=== PATIENT | male | born 1955 | race Caucasian/White ===

== ENCOUNTER 2018-12-25 07:43 | Emergency (ER) | payer BC ==
[2018-12-25] MEDS ORDERED: Morphine 4 MG/ML Syringe IM ONE (08:09)
[2018-12-25] MEDS ORDERED: Ketorolac 60 MG/2 ML SDV IM ONE (08:09)
[2018-12-25] MEDS ORDERED: Morphine 4 MG/ML Syringe IM STA (08:14)
--- NOTE | 2018-12-25 08:18 | EDM.PDOC ---
ED HPI GENERAL MEDICAL PROBLEM - General Chief Complaint: General Stated Complaint: FELL, RIB PAIN Time Seen by Provider: 12/25/18 07:43 Source of Information: Reports: Patient, EMS, Family History Limitations: Reports: Physical Impairment (left rib pain) - History of Present Illness INITIAL COMMENTS - FREE TEXT/NARRATIVE: 63 y.o.w.m with a H/O TYP DM and HTN came by EMS to the ED by EMS after he fell down the stairs because his legs "gave out" notices severe pain at his lower back and left chest wall. He does not take ASA does not take Coumadin. 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 No N/V/D. No dizziness, no SOB. He has left lat chest and low back pain. He has chronic microcytic Hematuria for more the 16 years. No other acute med issues. BP 179/102 RR 24 Pulse ox 98% on RA Pulse 68 Temp 36.8 Onset Date: 12/25/18 Onset Time: 06:30 Duration: Minutes:, Hour(s):, Intermittent, Waxing/Waning Location: Reports: Back Quality: Reports: Burning, Dull Severity: Moderate Improves with: Reports: Rest Worsens with: Reports: Movement Context: Reports: Trauma (fal down the stairs) Left back Pain Score (Numeric/FACES): 9 - Related Data Allergies Allergy/AdvReac Type Severity Reaction Status Date / Time Sulfa (Sulfonamide Allergy Unknown UNKNOWN Verified 12/25/18 07:54 Antibiotics) Home Meds: Home Meds Acetaminophen [Tylenol] 325 mg PO ASDIRECTED PRN 04/15/15 [History] Gluc Johnson/Chondro Johnson A/Vit C/Mn [Glucosamine 1,500 Complex Cp] 1 tab PO DAILY [History] Naproxen Sodium [Aleve] 220 mg PO ASDIRECTED PRN 04/15/15 [History] carBAMazepine [Carbamazepine ER] 400 mg PO DAILY 04/15/15 [History] Lisinopril/Hydrochlorothiazide [Lisinopril-Hctz 20-12.5 mg Tab] 2 each PO DAILY 12/25/18 [History] atorvaSTATin Calcium [Atorvastatin Calcium] 10 mg PO DAILY 12/25/18 [History] metFORMIN HCl [Metformin HCl] 500 mg PO DAILY 12/25/18 [History] Past Medical History Cardiovascular History: Reports: High Cholesterol, Hypertension Other Genitourinary History: URGENCY W/VOIDING Endocrine/Metabolic History: Reports: Diabetes, Type II, Obesity/BMI 30+ - Past Surgical History Other GI Surgeries/Procedures: HX COLON POLYPS Social & Family History - Family History Family Medical History: Noncontributory - Tobacco Use Smoking Status *Q: Former Smoker Used Tobacco, but Quit: Yes Month/Year Tobacco Last Used: 1978 - Caffeine Use Caffeine Use: Reports: Coffee - Recreational Drug Use Recreational Drug Use: No ED ROS GENERAL - Review of Systems Review Of Systems: See Below Constitutional: Reports: No Symptoms HEENT: Reports: No Symptoms Respiratory: Reports: No Symptoms Cardiovascular: Reports: No Symptoms Endocrine: Reports: No Symptoms GI/Abdominal: Reports: No Symptoms : Reports: Hematuria (chronic) Musculoskeletal: Reports: Back Pain, Muscle Pain Skin: Reports: Wound (abrasion left back) Neurological: Reports: No Symptoms Psychiatric: Reports: No Symptoms Hematologic/Lymphatic: Reports: No Symptoms Immunologic: Reports: No Symptoms ED EXAM, GENERAL - Physical Exam Exam: See Below Exam Limited By: Other (back pain) General Appearance: Alert, WD/WN, Mild Distress, Moderate Distress, Obese Eye Exam: Bilateral Eye: Normal Inspection Ears: Normal External Exam Ear Exam: Bilateral Ear: Auricle Normal Nose: Normal Inspection, Normal Mucosa Throat/Mouth: Normal Inspection, Normal Lips, Normal Voice, No Airway Compromise Head: Atraumatic, Normocephalic Neck: Normal Inspection, Supple, Non-Tender Respiratory/Chest: No Respiratory Distress, Lungs Clear, Normal Breath Sounds, Decreased Breath Sounds (due to trauma to chest ) Cardiovascular: Normal Peripheral Pulses, Regular Rate, Rhythm Peripheral Pulses: 1+: Brachial (R) GI/Abdominal: Normal Bowel Sounds, Soft, Non-Tender, No Organomegaly, No Abnormal Bruit, No Mass, Pelvis Stable (Male) Exam: Deferred Rectal (Males) Exam: Other (no stool incontinence) Back Exam: Normal Inspection, Full Range of Motion Extremities: Normal Inspection, Normal Range of Motion, Non-Tender, No Pedal Edema, Normal Capillary Refill Neurological: Alert, Oriented, CN II-XII Intact, Normal Cognition, Abnormal Gait (becasue of back and rib pain) Psychiatric: Normal Affect, Normal Mood Skin Exam: Warm, Dry, Normal Color, No Rash, Rash (abrasion left post chest) Lymphatic: No Adenopathy Course - Vital Signs Text/Narrative:: 63 y.o.w.m with a H/O TYP DM and HTN came by EMS to the ED by EMS after he fell down the stairs because his legs "gave out" notices severe pain at his lower back and left chest wall. He does not take ASA does not take Coumadin. 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 No N/V/D. No dizziness, no SOB. He has left lat chest and low back pain. He has chronic microcytic Hematuria for more the 16 years. TD UTD. No other acute med issues. 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 Possible evolving compression Fx lower T spine. Please se reports Labs: Accu check 229 Impression: Fall down the stairs, Back pain, Fxs T10, L1 and Rib 11 and 12, chronic hematuria (> 10 years) Tx: Ice, Toradol, Morphine, Percocet 12.00 pm Consultation: Dr. Harkins, Ortho: No aswer per phone 12.05 pm Physical Tx: To aske for TLSO Brace: No answer 12.10 pm Consultation: Dr. Guzmán, Neurosurgeon, [facility]: T spine Fx's are stable, apply a TLSO Brace and F/U in clinic. Since a TLS Brace not available at [place], Dr. Guzmán recommended to sent pt to the ED and be evaluated by a Trauma/Neurosurgeon. 12.45 pm Consultation: Dr. Dempsey, [facility]: Accepted the patient for admission an and further care, Private vehicle with is OK Reevaluation: Pt was ambulating to the bathroom well. Plan: ER to ER transfer, Pt wants to go by EMS, refused EMS Last Recorded V/S: Last Vital Signs Temp 36.4 C 12/25/18 13:00 Pulse 65 12/25/18 13:00 Resp 20 12/25/18 13:00 BP 156/91 H 12/25/18 13:00 Pulse Ox 100 12/25/18 13:00 - Orders/Labs/Meds Orders: Active Orders 24 hr Category Date Time Status Chest wo Cont [CT] Stat Exams 12/25/18 08:11 Taken Thoracic Spine Comp wo Cont [MR] Stat Exams 12/25/18 10:09 Taken Meds: Medications Discontinued Medications Generic Name Dose Route Start Last Admin Trade Name Bo PRN Reason Stop Dose Admin Ketorolac Tromethamine 60 mg 12/25/18 08:09 12/25/18 08:15 Toradol IM 12/25/18 08:10 60 mg ONETIME ONE Administration Morphine Sulfate 4 mg 12/25/18 08:30 12/25/18 08:23 Morphine IM 12/25/18 08:31 4 mg ONETIME ONE Administration Oxycodone/Acetaminophen 1 tab 12/25/18 09:46 12/25/18 10:09 Percocet 325-5 Mg PO 12/25/18 09:47 1 tab ONETIME ONE Administration Departure - Departure Time of Disposition: 13:11 Disposition: DC/Tfer to Acute Hospital 02 Condition: Fair Clinical Impression: Traumatic fracture of spine at T12-L1 level, Abrasion Spinal fracture of T10 vertebra Qualifiers: Encounter type: initial encounter Fracture type: closed Fracture morphology: other fracture Qualified Code(s): S22.078A - Other fracture of T9-T10 vertebra, initial encounter for closed fracture Ribs, multiple fractures Qualifiers: Encounter type: initial encounter Fracture type: closed Laterality: left Qualified Code(s): S22.42XA - Multiple fractures of ribs, left side, initial encounter for closed fracture - Discharge Information Instructions: Rib Fracture, [id number] Referrals: Milton Braga MD [Primary Care Provider] - Forms: ED Department Discharge Additional Instructions: Please follow up right away at the new ED at [facility]. Ice to lower back - My Orders Last 24 Hours: My Active Orders 12/25/18 08:11 Chest wo Cont [CT] Stat 12/25/18 10:09 Thoracic Spine Comp wo Cont [MR] Stat - Assessment/Plan Last 24 Hours: My Active Orders 12/25/18 08:11 Chest wo Cont [CT] Stat 12/25/18 10:09 Thoracic Spine Comp wo Cont [MR] Stat
[2018-12-25] MEDS ORDERED: Acetaminophen/oxyCODONE 325-5 MG Tab PO ONE (09:46)
[2018-12-25 13:29] VITALS: BP 156/91
== END 2018-12-25 13:25 ==
LOC: FB.ED 07:43
DX: S22.42XA Multiple fractures of ribs, left side, initial encounter for closed fracture (principal); S22.078A Other fracture of T9-T10 vertebra, initial encounter for closed fracture; S22.089A Unspecified fracture of T11-T12 vertebra, initial encounter for closed fracture; S32.019A Unspecified fracture of first lumbar vertebra, initial encounter for closed fracture; I10 Essential (primary) hypertension; Z79.899 Other long term (current) drug therapy; E78.00 Pure hypercholesterolemia, unspecified; Z87.891 Personal history of nicotine dependence; W10.9XXA Fall (on) (from) unspecified stairs and steps, initial encounter; Z88.2 Allergy status to sulfonamides
CPT/HCPCS: 71250; 72146; 99285; A9270; J1885; J2270

== ENCOUNTER 2020-10-17 08:54 | Day surgery (SDC) | payer BC ==
[~2020-10-17 08:54] MED LIST: Lactated Ringers 1,000 ML IV SCH; Sodium Chloride 0.9% 10 ML Syringe FLUSH PRN
[2020-10-17] MEDS ORDERED: Propofol 200 MG/20 ML SDV IV ONE (08:55)
[2020-10-17] MEDS ORDERED: Lidocaine 2% 5 ML SDV INJECT ONE (08:55)
[2020-10-17] MEDS ORDERED: Lactated Ringers 1,000 ML IV SCH (09:00)
[2020-10-17] MEDS ORDERED: Sodium Chloride 0.9% 10 ML Syringe FLUSH PRN (09:00)
--- NOTE | 2020-10-17 10:57 | PCM.OPNOTE ---
- General Post-Op/Procedure Note Date of Surgery/Procedure: 10/17/20 Operative Procedure(s): c scope with hot loop snare and cold forceps biopsy Findings: ascending colon polyp x6 descending colon polyp rectal polyp Pre Op Diagnosis: personal hx of colon polyps Post-Op Diagnosis: ascending colon polyp x6. descending colon polyp. rectal polyp Anesthesia Technique: MAC Primary Surgeon: Conner Carrillo Anesthesia Provider: Milton Allen Pathology: ascending colon polyp x6 descending colon polyp rectal polyp Complications: None Condition: Good Free Text/Narrative:: see dictation [id number]
[2020-10-17 11:23] VITALS: BP 144/90; PULSE 74
--- NOTE | 2020-10-17 13:27 | OR ---
DATE OF OPERATION: 10/17/2020 SURGEON: Conner Carrillo MD PROCEDURE PERFORMED: Colonoscopy with cold forceps and hot loop snare biopsy. PREOPERATIVE DIAGNOSIS: Personal history of colon polyps. POSTOPERATIVE DIAGNOSIS: Ascending colon polyps x6, descending colon polyp x1, and rectal polyp x1. INDICATIONS FOR PROCEDURE: This is a 65-year-old white male who presents for followup colonoscopy, last one was 5 years ago. It was recommended that he follow up at the 5-year point. He is asymptomatic. He was offered and accepted colonoscopy. DESCRIPTION OF PROCEDURE: After an excellent IV sedation was administered by Anesthesia, digital rectal exam was performed. No marked abnormality was noted. The flexible colonoscope was inserted and advanced without difficulty to the cecum. The cecum was identified by the usual anatomic markers. The prep was marginal. There was a fair amount of particulate matter, especially what appeared to be kernel corn. We were able to irrigate the majority of it, but the scope was clogged on several occasions during this process on withdrawing the scope; therefore, smaller polyps may have been missed. The following findings are noted, however. Ascending colon, a total of 6 polyps; 2 located in the cecum and 4 others along the entire length of the ascending colon. These were 5 mm and less in size. These were not amenable to hot loop snare biopsy, and therefore, were biopsied with the cold forceps and submitted in one container. Transverse colon was unremarkable except for the areas of liquid stool that were irrigated to the best of our ability. Descending colon, a pedunculated polyp, biopsied with hot loop snare and retrieved, submitted in one container. Sigmoid was unremarkable. This had a largest collection of liquid stool along with the rectum. This was irrigated to the best of our ability as was the rectum, and in the rectum, an additional pedunculated polyp was encountered, which was biopsied with hot loop snare and retrieved. All the polyps appeared to be adenomatous in nature, and after this is treated, the patient will obviously require repeat colonoscopy in one year. My recommendations would be that he undergo a repeat colonoscopy regardless of the pathology results due to the quality of his bowel prep, but this will go around. Results will be sent to the patient via letter. /[id number] /[id number]
== END 2020-10-17 11:28 | disposition home or self-care (01) ==
LOC: FB.SDS 08:54
PROVIDERS: ATTEND Surgery
DX: Z12.11 Encounter for screening for malignant neoplasm of colon (principal); D12.2 Benign neoplasm of ascending colon; D12.4 Benign neoplasm of descending colon; D12.8 Benign neoplasm of rectum; K62.89 Other specified diseases of anus and rectum; I10 Essential (primary) hypertension; E11.9 Type 2 diabetes mellitus without complications; Z79.84 Long term (current) use of oral hypoglycemic drugs; Z90.49 Acquired absence of other specified parts of digestive tract; Z79.899 Other long term (current) drug therapy; Z79.82 Long term (current) use of aspirin; Z88.2 Allergy status to sulfonamides; Z98.890 Other specified postprocedural states
CPT/HCPCS: 00811-QZ; 82962; 88305; J2704; J7120

== ENCOUNTER 2022-01-01 06:31 | Day surgery (SDC) | payer BC ==
[2022-01-01] MEDS ORDERED: Propofol 200 MG/20 ML SDV IV ONE (06:32)
[2022-01-01] MEDS ORDERED: Lactated Ringers 1,000 ML IV SCH (06:45)
[2022-01-01] MEDS ORDERED: Sodium Chloride 0.9% 10 ML Syringe FLUSH PRN (06:45)
[2022-01-01 10:56] VITALS: BP 107/75; PULSE 70
== END 2022-01-01 09:35 | disposition home or self-care (01) ==
LOC: FB.SDS 06:31
PROVIDERS: ATTEND Surgery
DX: Z12.11 Encounter for screening for malignant neoplasm of colon (principal); I10 Essential (primary) hypertension; E66.9 Obesity, unspecified; G47.30 Sleep apnea, unspecified; E11.9 Type 2 diabetes mellitus without complications; Z79.84 Long term (current) use of oral hypoglycemic drugs; Z86.010 Personal history of colon polyps; Z79.899 Other long term (current) drug therapy; Z88.2 Allergy status to sulfonamides; Z90.49 Acquired absence of other specified parts of digestive tract; Z98.890 Other specified postprocedural states; Z87.891 Personal history of nicotine dependence; Z68.41 Body mass index [BMI] 40.0-44.9, adult
CPT/HCPCS: 82947; J2704; J7120